=== PATIENT | female | born 1945 | race Caucasian/White ===

== ENCOUNTER → 2017-02-09 | Outpatient (CLI) | payer OTHER ==
[2017-02-09 14:55] LABS: BUN/CREATININE RATIO 21.25 (6-20); CALCIUM 9.4 mg/dL (8.7-10.7); SERUM ALBUMIN 3.9 g/dL (3.5-4.8)
[2017-02-09 15:19] LABS: BASOPHILS # (AUTO) 0.05 10*3/UL; BASOPHILS % (AUTO) 1.1 % (0-1); EOSINOPHILS # (AUTO) 0.17 10*3/UL; EOSINOPHILS % (AUTO) 3.6 % (0-8); HEMATOCRIT 64.1 % (37.0-47.0); HEMOGLOBIN 22.7 g/dL (12.0-16.0); LYMPHOCYTES # (AUTO) 2.19 10*3/uL; MEAN CORPUSCULAR HEMOGLOBIN 32.2 PG (27-31); MEAN CORPUSCULAR HGB CONC 35.4 g/dL (33-37); MEAN CORPUSCULAR VOLUME 91.1 FL (81-99); MEAN PLATELET VOLUME 9.8 FL (7.4-12.2); MONOCYTES % (AUTO) 4.3 % (5-15); NEUTROPHILS # (AUTO) 2.06 10*3/UL; NEUTROPHILS % (AUTO) 44.1 % (50-80)
[2017-02-09 15:23] LABS: PLATELET MORPHOLOGY COMMENT NORMAL MORPHOLOGY (NORM); RBC MORPHOLOGY COMMENT NORMAL MORPHOLOGY (NORM); RED BLOOD COUNT 7.04 10^6/uL (4.20-5.40); WBC MORPHOLOGY COMMENT NORMAL MORPHOLOGY (NORM)
[2017-02-09 15:35] LABS: CHOL/HDL RATIO 2.97 RATIO (0-4.0); LDL CHOLESTEROL,CALCULATED 68.4 mg/dL
== END ==
LOC: LAB 09:24
PROVIDERS: ATTEND Physician Assistant Medical
DX: E88.09 Other disorders of plasma-protein metabolism, not elsewhere classified (principal); E66.9 Obesity, unspecified; I10 Essential (primary) hypertension
CPT/HCPCS: 80053; 80061; 84443; 85025

== ENCOUNTER → 2017-03-17 | Outpatient (CLI) | payer OTHER ==
[2017-03-17 14:46] LABS: HEMOGLOBIN 13.9 g/dL (12.0-16.0); RED BLOOD COUNT 4.37 10^6/uL (4.20-5.40)
[2017-03-17 14:47] LABS: BASOPHILS # (AUTO) 0.03 10*3/UL; BASOPHILS % (AUTO) 0.3 % (0-1); EOSINOPHILS # (AUTO) 0.57 10*3/UL; EOSINOPHILS % (AUTO) 5.9 % (0-8); HEMATOCRIT 41.1 % (37.0-47.0); LYMPHOCYTES # (AUTO) 2.68 10*3/uL; MEAN CORPUSCULAR HEMOGLOBIN 31.8 PG (27-31); MEAN CORPUSCULAR HGB CONC 33.8 g/dL (33-37); MEAN CORPUSCULAR VOLUME 94.1 FL (81-99); MONOCYTES # (AUTO) 0.64 10*3/UL (0.3-0.8); MONOCYTES % (AUTO) 6.6 % (5-15); NEUTROPHILS # (AUTO) 5.76 10*3/UL; NEUTROPHILS % (AUTO) 59.4 % (50-80); PLATELET MORPHOLOGY COMMENT NORMAL MORPHOLOGY (NORM); RBC MORPHOLOGY COMMENT NORMAL MORPHOLOGY (NORM); WBC MORPHOLOGY COMMENT NORMAL MORPHOLOGY (NORM)
== END ==
LOC: LAB 08:45
PROVIDERS: ATTEND Physician Assistant Medical
DX: E88.09 Other disorders of plasma-protein metabolism, not elsewhere classified (principal)
CPT/HCPCS: 36415; 85025